=== PATIENT | male | born 1965 | race Caucasian/White ===

== ENCOUNTER 2020-12-10 13:58 | Emergency (ER) | payer BC, MEDICARE ==
[2020-12-10] MEDS ORDERED: Sodium Chloride 0.9% 1000 ML 1,000 ML IV STA (14:01)
[2020-12-10] MEDS ORDERED: Sodium Chloride 0.9% 1000 ML 1,000 ML ONE (14:06)
[2020-12-10 14:17] LABS: Absolute Neutrophil Ct (ANC) 7.47 (1.4-6.9); BASOPHIL % 0.2 % (0.0-0.4); Basophil (Absolute #) 0.02 (0-0.4); Eosinophil % 1.2 % (0.00-5.0); Eosinophil (Absolute #) 0.12 (0-0.5); Hematocrit 47.9 % (42-50); Hemoglobin 16.5 gm/dl (12.5-18.0); Lymphocyte (Absolute #) 1.69 (1.0-4.6); Lymphocytes % 16.8 % (24.0-44.0); Mean Cell Volume 89.2 fl (78-100); Mean Corpuscular Hemoglobin 30.7 pg (26-32); Mean Corpuscular Hgb Concent. 34.4 g/dl (32-36); Mean Platelet Volume 8.7 fl (7.5-11.0); Monocyte (Absolute #) 0.75 (0.0-1.3); Monocytes % 7.5 % (0.0-12.0); Neutrophil % 74.3 % (36.0-66.0); Platelet Count 254 K/mm3 (150-450); Red Blood Count 5.37 M/mm3 (4.1-5.6); Red Cell Distribution Width 12.8 % (11.5-14.0); White Blood Count 10.1 K/mm3 (4.0-10.5)
--- NOTE | 2020-12-10 14:31 | XRAY ---
Indication: Short of breath. Heat exhaustion. Comparison: April 21, 2006. Portable chest again demonstrates normal heart and lungs. Bony thorax intact with mild degenerative changes. No new/acute findings.
[2020-12-10 14:47] LABS: ALBUMIN 4.9 g/dL (3.5-5.0); ANION GAP 23.5 MEQ/L (5-15); BILIRUBIN,TOTAL 2.2 mg/dL (0.2-1.3); Creatinine 1 1.59 mg/dL (0.66-1.25); EST GLOMERULAR FILTRATION RATE 48.1 ML/MIN; MAGNESIUM 1.9 mg/dL (1.6-2.3); NT PRO BNP 81.1 pg/mL (0-900); Potassium 4.6 mmol/L (3.5-5.1); Total Protein 7.7 g/dL (6.3-8.2)
[2020-12-10] MEDS ORDERED: Zofran 4 MG/2 ML VIAL IV ONE (14:58)
[2020-12-10] MEDS ORDERED: MORPHINE SULFATE 4 MG INJ IV ONE (14:58)
--- NOTE | 2020-12-10 15:03 | ERPHSYRPT ---
- History of Present Illness Time Seen by Provider: 12/10/20 14:01 Source: patient, EMS Exam Limitations: no limitations Patient Subjective Stated Complaint: PT states "I think I am overheated." Triage Nursing Assessment: Pt presented anxious, tachypneic, cramping in legs and hyperventilating. Physician History: 55 years old male with history of coronary artery disease status post stenting, COPD, hypertension presented in the ER with chief complaint of sudden onset heat cramps and shortness of breath after he was working outside in hot humid for almost 4 hours. Patient is tachypneic and mildly tachycardic, complaining of cramping in both calves which is visible, mild nausea and some shortness of breath and feeling hot all over. Patient reports he has been trying to keep up with his hydration but not enough. No chest pain or palpitations. Patient is very anxious. He is feeling weak fatigued and tired with no energy. Allergies/Adverse Reactions: UNOBTAINABLE Allergy (Unverified 12/10/20 14:07) pt could not remember what he was allergic to Home Medications: ALPRAZolam 0.25 MG [xanAX 0.25 MG] 0.25 mg PO DAILY 12/10/20 [History] Clopidogrel Bisulfate 75 mg [PLAVIX 75 MG Tablet] 75 mg PO DAILY 12/10/20 [History] Ezetimibe 10 mg [Zetia 10 MG] 10 mg PO DAILY 12/10/20 [History] Gabapentin 100 mg [Neurontin 100 MG] 100 mg PO DAILY 12/10/20 [History] Glipizide Xl 10 mg [Glucotrol Xl 10 MG] 10 mg PO DAILY 12/10/20 [History] Meloxicam 7.5 mg PO DAILY 12/10/20 [History] Metformin HCl [Metformin ER Osmotic] 1,000 mg PO DAILY 12/10/20 [History] PANTOPRAZOLE 40 mg Tablet [Protonix 40MG Tablet] 40 mg PO DAILY 12/10/20 [History] Rosuvastatin Calcium 20 mg PO DAILY 12/10/20 [History] Zolpidem Tartrate 10 mg [Ambien 10 MG] 10 mg PO DAILY 12/10/20 [History] lisinopriL [Lisinopril] 2.5 mg PO DAILY 12/10/20 [History] Hx Tetanus, Diphtheria Vaccination/Date Given: No Hx Influenza Vaccination/Date Given: No Hx Pneumococcal Vaccination/Date Given: No Immunizations Up to Date: Yes Travel Risk - International Travel Have you traveled outside of the country in past 3 weeks: No - Coronavirus Screening Are you exhibiting any of the following symptoms?: No Close contact with a COVID-19 positive Pt in past 14-21 Days: No - Vaccine Status Have you recieved a Covid-19 vaccination: Yes Lens Polisher: Moderna - Vaccination Dates Date of 2cond Vaccination (if applicable): 08/2020 - Review of Systems Constitutional: Fatigue, Weakness Eyes: No Symptoms Ears, Nose, & Throat: No Symptoms Respiratory: Dyspnea Cardiac: No Symptoms Abdominal/Gastrointestinal: Nausea Genitourinary Symptoms: No Symptoms Musculoskeletal: Myalgias Neurological: No Symptoms Psychological: Anxiety Endocrine: No Symptoms Hematologic/Lymphatic: No Symptoms Immunological/Allergic: No Symptoms - Past Medical History Pertinent Past Medical History: Yes Cardiac History: Coronary Artery Disease, Hypertension Respiratory History: COPD Endocrine Medical History: Diabetes Type II GI Medical History: GERD - Past Surgical History Past Surgical History: Yes Other Surgical History: back. left knee. bilat shoulder. bilat hand. bilat elbow - Social History Smoking Status: Former smoker Exposure to second hand smoke: No Drug Use: marijuana Patient Lives Alone: No - Nursing Vital Signs Nursing Vital Signs: Initial Vital Signs Temperature 97.6 F 12/10/20 13:59 Pulse Rate 98 H 12/10/20 13:59 Respiratory Rate 26 H 12/10/20 13:59 Blood Pressure 125/90 12/10/20 13:59 O2 Sat by Pulse Oximetry 100 12/10/20 13:59 Pain Scale Pain Intensity 0 - Physical Exam General Appearance: mild distress, alert, anxiety Eye Exam: PERRL/EOMI, eyes nml inspection Ears, Nose, Throat Exam: normal ENT inspection, TMs normal, pharynx normal, michelle st mucous membranes Neck Exam: normal inspection, supple, full range of motion Respiratory Exam: normal breath sounds, lungs clear Cardiovascular Exam: regular rate/rhythm, normal heart sounds Gastrointestinal/Abdomen Exam: soft, normal bowel sounds, No tenderness Back Exam: normal inspection, normal range of motion Extremity Exam: normal inspection, normal range of motion, pelvis stable, other (Visible cramping in calves) Neurologic Exam: alert, oriented x 3, cooperative, timers inspector II-XII nml as tested, nml cerebellar function, sensation nml, No normal mood/affect, No motor deficits Skin Exam: normal color SpO2 Interpretation: normal SpO2: 100 O2 Delivery: Room Air - Course EKG Interpreted by Me: RATE ([id number]), Sinus Tach, NORMAL AXIS, NORMAL INTERVALS, Right Bundle Branch Block, Non-specific ST Changes Ordered Tests: Active Orders 24 hr Category Date Time Status Wood Heel Attacher STAT Care 12/10/20 14:03 Active EKG-ER Only STAT Care 12/10/20 14:01 Active IV Insertion STAT Care 12/10/20 14:01 Active CHEST 1 VIEW (PORTABLE) Stat Exams 12/10/20 14:03 Completed CBC W DIFF Stat Lab 12/10/20 14:10 Completed CK-Creatinine Phosphokinase Stat Lab 12/10/20 14:10 Completed CMP Stat Lab 12/10/20 14:10 Completed CMP Stat Lab 12/10/20 17:20 Completed MAGNESIUM Stat Lab 12/10/20 14:10 Completed NT PRO BNP Stat Lab 12/10/20 14:10 Completed TROPONIN Q3H Lab 12/10/20 14:10 Completed TROPONIN Q3H Lab 12/10/20 17:20 Completed TROPONIN Q3H Lab 12/10/20 20:15 Ordered TROPONIN Q3H Lab 12/10/20 23:15 Ordered TROPONIN Q3H Lab 12/11/20 02:15 Ordered Medication Summary Discontinued Medications Generic Name Dose Route Start Last Admin Trade Name Freq PRN Reason Stop Dose Admin Sodium Chloride 1,000 mls @ 999 mls/hr 12/10/20 14:01 12/10/20 15:56 Sodium Chloride 0.9% 1000 Ml IV 12/10/20 15:01 Infused .Q1H1M STA Infusion Sodium Chloride Confirm 12/10/20 14:06 Sodium Chloride 0.9% 1000 Ml Administered 12/10/20 14:07 Dose 1,000 mls @ ud .ROUTE .STK-MED ONE Sodium Chloride 500 mls @ 500 mls/hr 12/10/20 16:19 12/10/20 17:56 Sodium Chloride 0.9% 500 Ml IV 12/10/20 17:18 Infused .Q1H ONE Infusion Sodium Chloride Confirm 12/10/20 16:17 Sodium Chloride 0.9% 500 Ml Administered 12/10/20 16:18 Dose 500 mls @ ud IV .STK-MED ONE Morphine Sulfate 4 mg 12/10/20 14:58 12/10/20 15:05 Morphine Sulfate 4 Mg Inj IV 12/10/20 14:59 4 mg STAT ONE Administration Morphine Sulfate Confirm 12/10/20 15:04 Morphine Sulfate 4 Mg Inj Administered 12/10/20 15:05 Dose 4 mg .ROUTE .STK-MED ONE Ondansetron HCl 4 mg 12/10/20 14:58 12/10/20 15:05 Zofran 4 Mg/2 Ml Vial IV 12/10/20 14:59 4 mg STAT ONE Administration Ondansetron HCl Confirm 12/10/20 15:04 Zofran 4 Mg/2 Ml Vial Administered 12/10/20 15:05 Dose 4 mg .ROUTE .STK-MED ONE Lab/Rad Data: Laboratory Result Diagrams 12/10/20 14:10 12/10/20 17:20 Laboratory Results 12/10/20 12/10/20 12/10/20 Range/Units 17:20 17:20 14:10 WBC (4.0-10.5) K/mm3 RBC (4.1-5.6) M/mm3 Hgb (12.5-18.0) gm/dl Hct (42-50) % MCV (78-100) fl MCH (26-32) pg MCHC (32-36) g/dl RDW (11.5-14.0) % Plt Count (150-450) K/mm3 MPV (7.5-11.0) fl Gran % (36.0-66.0) % Eos # (Auto) (0-0.5) Absolute Lymphs (auto) (1.0-4.6) Absolute Monos (auto) (0.0-1.3) Lymphocytes % (24.0-44.0) % Monocytes % (0.0-12.0) % Eosinophils % (0.00-5.0) % Basophils % (0.0-0.4) % Absolute Granulocytes (1.4-6.9) Basophils # (0-0.4) Sodium 141 (137-145) mmol/L Potassium 4.3 (3.5-5.1) mmol/L Chloride 109 H (98-107) mmol/L Carbon Dioxide 21 L (22-30) mmol/L Anion Gap 15.7 H (5-15) MEQ/L BUN 22 H (9-20) mg/dL Creatinine 1.20 (0.66-1.25) mg/dL Estimated GFR > 60.0 ML/MIN Glucose 133 H (74-106) mg/dL Calcium 9.2 (8.4-10.2) mg/dL Magnesium (1.6-2.3) mg/dL Total Bilirubin 2.10 H (0.2-1.3) mg/dL AST 34 (17-59) U/L ALT 47 (0-50) U/L Alkaline Phosphatase 36 L (38-126) U/L Creatine Kinase (55-170) U/L Troponin I 0.015 < 0.012 (0.000-0.034) ng/mL NT-Pro-B Natriuret Pep (0-900) pg/mL Serum Total Protein 7.0 (6.3-8.2) g/dL Albumin 4.3 (3.5-5.0) g/dL 12/10/20 12/10/20 Range/Units 14:10 14:10 WBC 10.1 (4.0-10.5) K/mm3 RBC 5.37 (4.1-5.6) M/mm3 Hgb 16.5 (12.5-18.0) gm/dl Hct 47.9 (42-50) % MCV 89.2 (78-100) fl MCH 30.7 (26-32) pg MCHC 34.4 (32-36) g/dl RDW 12.8 (11.5-14.0) % Plt Count 254 (150-450) K/mm3 MPV 8.7 (7.5-11.0) fl Gran % 74.3 H (36.0-66.0) % Eos # (Auto) 0.12 (0-0.5) Absolute Lymphs (auto) 1.69 (1.0-4.6) Absolute Monos (auto) 0.75 (0.0-1.3) Lymphocytes % 16.8 L (24.0-44.0) % Monocytes % 7.5 (0.0-12.0) % Eosinophils % 1.2 (0.00-5.0) % Basophils % 0.2 (0.0-0.4) % Absolute Granulocytes 7.47 H (1.4-6.9) Basophils # 0.02 (0-0.4) Sodium 140 (137-145) mmol/L Potassium 4.6 (3.5-5.1) mmol/L Chloride 106 (98-107) mmol/L Carbon Dioxide 15 L* (22-30) mmol/L Anion Gap 23.5 H (5-15) MEQ/L BUN 20 (9-20) mg/dL Creatinine 1.59 H (0.66-1.25) mg/dL Estimated GFR 48.1 ML/MIN Glucose 212 H (74-106) mg/dL Calcium 10.0 (8.4-10.2) mg/dL Magnesium 1.9 (1.6-2.3) mg/dL Total Bilirubin 2.20 H (0.2-1.3) mg/dL AST 41 (17-59) U/L ALT 47 (0-50) U/L Alkaline Phosphatase 44 (38-126) U/L Creatine Kinase 89 (55-170) U/L Troponin I (0.000-0.034) ng/mL NT-Pro-B Natriuret Pep 81.1 (0-900) pg/mL Serum Total Protein 7.7 (6.3-8.2) g/dL Albumin 4.9 (3.5-5.0) g/dL - Progress Progress: improved, re-examined Progress Note: 12/10/20 18:27 55 years old is evaluated for heat cramps/exhaustion after working for a long time and hot sun. Patient was tachypneic and mildly tachycardic on presentation. Given multiple fluid boluses along with a dose of morphine, on reevaluation feeling better. Work-up showed finding consistent with dehydration, some DOUGLAS which I have repeated after 2-1/2 L fluid and it is much improved. EKG did not show any acute ST elevation and negative troponins x2. Chest x-ray negative for any acute cardiopulmonary findings. Patient is feeling back to his baseline on reevaluation. He is advised to drink plenty of fluids to keep himself well-hydrated, stay in a cool place in outpatient follow-up. Discussed signs symptoms of worsening needing return to ER which he seems understanding. Stable for discharge. Counseled pt/family regarding: lab results, diagnosis, need for follow-up, rad results - Departure Departure Disposition: Home Clinical Impression: Dehydration, DOUGLAS (acute kidney injury) Heat exhaustion Qualifiers: Encounter type: initial encounter Qualified Code(s): T67.5XXA - Heat exhaustion , unspecified, initial encounter Condition: Stable Critical Care Time: No Referrals: ROMERO INGRAM [Primary Care Provider] - (Call tomorrow for reevaluation in 1 to 2 days.) Instructions: Heat Exhaustion and Heat Stroke (DC) Additional Instructions: Drink plenty of fluids. Do not take ibuprofen/Aleve/diclofenac or any other NSAIDs. Follow-up with primary care physician for reevaluation. Stay in a cool place. Return to ER for worsening. Take Tylenol as needed for cramping.
[2020-12-10] MEDS ORDERED: MORPHINE SULFATE 4 MG INJ ONE (15:04)
[2020-12-10] MEDS ORDERED: Zofran 4 MG/2 ML VIAL ONE (15:04)
[2020-12-10] MEDS ORDERED: Sodium Chloride 0.9% 500 ML 500 ML IV ONE ×2 (16:17→16:19)
[2020-12-10 17:45] LABS: ALBUMIN 4.3 g/dL (3.5-5.0); ALKALINE PHOSPHATASE 36 U/L (38-126); ANION GAP 15.7 MEQ/L (5-15); BLOOD UREA NITROGEN 22 mg/dL (9-20); CHLORIDE 109 mmol/L (98-107); Calcium 9.2 mg/dL (8.4-10.2); Carbon Dioxide 21 mmol/L (22-30); EST GLOMERULAR FILTRATION RATE > 60.0 ML/MIN; Glucose 133 mg/dL (74-106); Potassium 4.3 mmol/L (3.5-5.1); SGOT/AST 34 U/L (17-59); SGPT/ALT 47 U/L (0-50); SODIUM 141 mmol/L (137-145)
[2020-12-10 19:02] VITALS: BP 114/62
[2020-12-10 19:03] VITALS: PULSE 66; O2SAT 97
== END 2020-12-10 19:17 | disposition home or self-care (01) ==
LOC: ED 13:58
DX: E86.0 Dehydration (principal); N17.9 Acute kidney failure, unspecified; I10 Essential (primary) hypertension; J44.9 Chronic obstructive pulmonary disease, unspecified; I25.10 Atherosclerotic heart disease of native coronary artery without angina pectoris
CPT/HCPCS: 36000; 36415; 71045; 80053; 82550; 83735; 83880; 84484; 85025; 93005; 93041; 96360; 96374; 96375; 99285; J2270; J2405

== ENCOUNTER 2020-12-12 12:52 | Emergency (ER) | payer MEDICARE, MEDICAID ==
[2020-12-12] MEDS ORDERED: Ativan 2 MG/1 ML VIAL ONE ×2 (12:56→13:00)
[2020-12-12] MEDS ORDERED: Sodium Chloride 0.9% 1000 ML 1,000 ML IV STA ×2 (12:57→14:54)
[2020-12-12] MEDS ORDERED: Ativan 2 MG/1 ML VIAL IV ONE ×2 (12:57→13:01)
[2020-12-12] MEDS ORDERED: Sodium Chloride 0.9% 1000 ML 1,000 ML ONE ×2 (13:00→15:00)
[2020-12-12] MEDS ORDERED: Hydromorphone 1 mg/ml Injection IV ONE (13:28)
[2020-12-12] MEDS ORDERED: Hydromorphone 1 mg/ml Injection ONE (13:36)
[2020-12-12 14:14] LABS: Absolute Neutrophil Ct (ANC) 7.68 (1.4-6.9); BASOPHIL % 0.2 % (0.0-0.4); Basophil (Absolute #) 0.02 (0-0.4); Eosinophil % 0.6 % (0.00-5.0); Eosinophil (Absolute #) 0.06 (0-0.5); Hematocrit 42.2 % (42-50); Hemoglobin 14.4 gm/dl (12.5-18.0); Lymphocyte (Absolute #) 2.15 (1.0-4.6); Mean Cell Volume 90.2 fl (78-100); Mean Corpuscular Hemoglobin 30.8 pg (26-32); Mean Corpuscular Hgb Concent. 34.1 g/dl (32-36); Mean Platelet Volume 8.4 fl (7.5-11.0); Monocyte (Absolute #) 0.82 (0.0-1.3); Monocytes % 7.6 % (0.0-12.0); Neutrophil % 71.6 % (36.0-66.0); Platelet Count 207 K/mm3 (150-450); Red Blood Count 4.68 M/mm3 (4.1-5.6); Red Cell Distribution Width 12.5 % (11.5-14.0); White Blood Count 10.7 K/mm3 (4.0-10.5)
--- NOTE | 2020-12-12 14:17 | XRAY ---
Indication: Cough. Comparison: December 10, 2020. Portable chest again demonstrates normal heart and lungs. No new/acute findings.
[2020-12-12 14:19] LABS: Appearance CLEAR (CLEAR); Bilirubin NEGATIVE (NEGATIVE); Blood NEGATIVE Ery/ul (0-5); Glucose 150 mg/dL (NEGATIVE); Ketones TRACE (NEGATIVE); Leukocyte Esterase NEGATIVE (NEGATIVE); Mucus SLIGHT /HPF (NEGATIVE); Nitrite NEGATIVE (NEGATIVE); Protein,Urine Dip NEGATIVE (Negative); Specific Gravity 1.005 (1.005-1.025); Urobilinogen NEGATIVE mg/dL (0-1)
[2020-12-12 14:21] LABS: INR 1.03 (0.8-3.0); PROTIME 12.2 SECONDS (9.4-12.5)
[2020-12-12 14:24] LABS: ALBUMIN 4.5 g/dL (3.5-5.0); ALKALINE PHOSPHATASE 38 U/L (38-126); AMYLASE 89 U/L (30-110); ANION GAP 15.8 MEQ/L (5-15); BLOOD UREA NITROGEN 16 mg/dL (9-20); CHLORIDE 110 mmol/L (98-107); Calcium 9.8 mg/dL (8.4-10.2); Carbon Dioxide 21 mmol/L (22-30); Creatinine 1 0.91 mg/dL (0.66-1.25); EST GLOMERULAR FILTRATION RATE > 60.0 ML/MIN; Glucose 118 mg/dL (74-106); LIPASE 72 U/L (23-300); Potassium 4.1 mmol/L (3.5-5.1); SGOT/AST 46 U/L (17-59); SGPT/ALT 40 U/L (0-50); SODIUM 143 mmol/L (137-145); Total Protein 7.1 g/dL (6.3-8.2)
[2020-12-12 14:38] LABS: Amphetamine,Urine NEGATIVE (NEGATIVE); Barbiturate,Urine NEGATIVE (NEGATIVE); Benzodiazepine,Urine NEGATIVE (NEGATIVE); Cocaine,Urine NEGATIVE (NEGATIVE); Methadone,Urine NEGATIVE (NEGATIVE); Opiate,Urine NEGATIVE (NEGATIVE); PCP,Urine NEGATIVE (NEGATIVE); THC,Urine POSITIVE (NEGATIVE)
--- NOTE | 2020-12-12 15:35 | ERPHSYRPT ---
- History of Present Illness Time Seen by Provider: 12/12/20 13:05 Source: patient, family Exam Limitations: no limitations Patient Subjective Stated Complaint: PT states "I was working in the yard again and it hit me all at once. I hurt." Triage Nursing Assessment: Pt presented extremely anxious, unable to sit still. pt tachypniec, grunting and groaing. Pt hyperventillating with partial pedal spasms. Physician History: Patient is a 55-year-old male who was working out in the heat and has been for some time who began to get muscle cramping hyperventilation carpal spasm paresthesias etc. he was seen for the same 2 or 3 days ago in the ER was treated with fluids and eventually the hyperventilation and the muscle spasm resolved. He has been working on an awning that he is trying to install. Timing/Duration: today Severity: severe Modifying Factors: Improves With: other (Heat) Associated Symptoms: shortness of breath, headaches, weakness Allergies/Adverse Reactions: UNOBTAINABLE Allergy (Verified 12/12/20 13:05) pt could not remember what he was allergic to Home Medications: ALPRAZolam 0.25 MG [xanAX 0.25 MG] 0.25 mg PO DAILY 12/10/20 [History] Clopidogrel Bisulfate 75 mg [PLAVIX 75 MG Tablet] 75 mg PO DAILY 12/10/20 [History] Ezetimibe 10 mg [Zetia 10 MG] 10 mg PO DAILY 12/10/20 [History] Gabapentin 100 mg [Neurontin 100 MG] 100 mg PO DAILY 12/10/20 [History] Glipizide Xl 10 mg [Glucotrol Xl 10 MG] 10 mg PO DAILY 12/10/20 [History] Meloxicam 7.5 mg PO DAILY 12/10/20 [History] Metformin HCl [Metformin ER Osmotic] 1,000 mg PO DAILY 12/10/20 [History] PANTOPRAZOLE 40 mg Tablet [Protonix 40MG Tablet] 40 mg PO DAILY 12/10/20 [History] Rosuvastatin Calcium 20 mg PO DAILY 12/10/20 [History] Zolpidem Tartrate 10 mg [Ambien 10 MG] 10 mg PO DAILY 12/10/20 [History] lisinopriL [Lisinopril] 2.5 mg PO DAILY 12/10/20 [History] Hx Tetanus, Diphtheria Vaccination/Date Given: No Hx Influenza Vaccination/Date Given: No Hx Pneumococcal Vaccination/Date Given: No Immunizations Up to Date: Yes Travel Risk - International Travel Have you traveled outside of the country in past 3 weeks: No - Coronavirus Screening Are you exhibiting any of the following symptoms?: No Close contact with a COVID-19 positive Pt in past 14-21 Days: No - Vaccine Status Have you recieved a Covid-19 vaccination: Yes Receiving And Processing Supervisor: Modern[employer] - Vaccination Dates Date of 2cond Vaccination (if applicable): 08/2020 - Review of Systems Constitutional: No Fever, No Chills Eyes: No Symptoms Ears, Nose, & Throat: No Symptoms Respiratory: Dyspnea, No Cough Cardiac: No Chest Pain, No Edema, No Syncope Abdominal/Gastrointestinal: No Abdominal Pain, No Nausea, No Vomiting, No Diarrhea Genitourinary Symptoms: No Dysuria Musculoskeletal: Other (Carpal spasm), No Back Pain, No Neck Pain Skin: No Rash Neurological: Parasthesia, No Dizziness, No Focal Weakness, No Sensory Changes Psychological: Anxiety Endocrine: No Symptoms All Other Systems: Reviewed and Negative - Past Medical History Pertinent Past Medical History: Yes Cardiac History: Coronary Artery Disease, Hypertension Respiratory History: COPD Endocrine Medical History: Diabetes Type II GI Medical History: GERD - Past Surgical History Past Surgical History: Yes Other Surgical History: back. left knee. bilat shoulder. bilat hand. bilat elbow - Social History Smoking Status: Former smoker Exposure to second hand smoke: No Drug Use: marijuana Patient Lives Alone: No - Nursing Vital Signs Nursing Vital Signs: Initial Vital Signs Temperature 98.2 F 12/12/20 12:59 Pulse Rate 100 H 12/12/20 12:59 Respiratory Rate 24 12/12/20 12:59 Blood Pressure 122/116 12/12/20 12:59 O2 Sat by Pulse Oximetry 100 12/12/20 12:59 Pain Scale Pain Intensity 0 - Physical Exam General Appearance: moderate distress, alert, anxiety Eye Exam: PERRL/EOMI, eyes nml inspection Ears, Nose, Throat Exam: normal ENT inspection, TMs normal, pharynx normal, moist mucous membranes Neck Exam: normal inspection, non-tender, supple, full range of motion Respiratory Exam: other (Hyperventilation) Cardiovascular Exam: regular rate/rhythm, normal heart sounds, normal peripheral pulses Gastrointestinal/Abdomen Exam: soft, normal bowel sounds, No tenderness, No mass Back Exam: normal inspection, normal range of motion, No CVA tenderness, No vertebral tenderness Extremity Exam: normal range of motion, parasthesia, other (Carpal spasm) Neurologic Exam: alert, oriented x 3, sample examiner II-XII nml as tested, agitation Skin Exam: diaphoresis SpO2 Interpretation: normal SpO2: 119 O2 Delivery: Room Air - Course Nursing assessment & vital signs reviewed: Yes EKG Interpreted by Me: RATE ([id number]), Sinus Rhythm, NORMAL AXIS, NORMAL INTERVALS, Right Bundle Branch Block, Non-specific ST Changes - Radiology Exams Chest X-ray Interpretation: Negative Ordered Tests: Active Orders 24 hr Category Date Time Status EKG-ER Only STAT Care 12/12/20 13:28 Active IV Insertion STAT Care 12/12/20 13:28 Active CHEST 1 VIEW (PORTABLE) Stat Exams 12/12/20 13:30 Completed AMYLASE Stat Lab 12/12/20 14:05 Completed CBC W DIFF Stat Lab 12/12/20 14:05 Completed CK (IN-HOUSE) [CK-Creatinine Phosphokinase] Stat Lab 12/12/20 14:05 Completed CMP Stat Lab 12/12/20 14:05 Completed LIPASE Stat Lab 12/12/20 14:05 Completed Lactic Acid Stat Lab 12/12/20 14:08 Completed PROTIME WITH INR Stat Lab 12/12/20 14:05 Completed TROPONIN Q3H Lab 12/12/20 14:05 Completed TROPONIN Q3H Lab 12/12/20 16:30 Ordered TROPONIN Q3H Lab 12/12/20 19:30 Ordered TROPONIN Q3H Lab 12/12/20 22:30 Ordered TROPONIN Q3H Lab 12/13/20 01:30 Ordered UA W/RFX UR CULTURE Stat Lab 12/12/20 13:42 Completed Urine Triage Profile Stat Lab 12/12/20 13:42 Completed Medication Summary Generic Name Dose Route Start Last Admin Trade Name Freq PRN Reason Stop Dose Admin Sodium Chloride 1,000 mls @ 999 mls/hr 12/12/20 14:54 12/12/20 15:02 Sodium Chloride 0.9% 1000 Ml IV 12/12/20 15:54 999 mls/hr .Q1H1M STA Administration Discontinued Medications Generic Name Dose Route Start Last Admin Trade Name Mago PRN Reason Stop Dose Admin Hydromorphone HCl 1 mg 12/12/20 13:28 12/12/20 13:40 Hydromorphone 1 Mg/Ml Injection IV 12/12/20 13:29 1 mg STAT ONE Administration Hydromorphone HCl Confirm 12/12/20 13:36 Hydromorphone 1 Mg/Ml Injection Administered 12/12/20 13:37 Dose 1 mg .ROUTE .STK-MED ONE Sodium Chloride 1,000 mls @ 999 mls/hr 12/12/20 12:57 12/12/20 14:43 Sodium Chloride 0.9% 1000 Ml IV 12/12/20 13:57 Infused .Q1H1M STA Infusion Sodium Chloride Confirm 12/12/20 13:00 Sodium Chloride 0.9% 1000 Ml Administered 12/12/20 13:01 Dose 1,000 mls @ ud .ROUTE .STK-MED ONE Sodium Chloride Confirm 12/12/20 15:00 Sodium Chloride 0.9% 1000 Ml Administered 12/12/20 15:01 Dose 1,000 mls @ ud .ROUTE .STK-MED ONE Lorazepam 1 mg 12/12/20 12:57 12/12/20 13:12 Ativan 2 Mg/1 Ml Vial IV 12/12/20 12:58 1 mg STAT ONE Administration Lorazepam Confirm 12/12/20 12:56 Ativan 2 Mg/1 Ml Vial Administered 12/12/20 12:57 Dose 2 mg .ROUTE .STK-MED ONE Lorazepam 1 mg 12/12/20 13:01 12/12/20 13:13 Ativan 2 Mg/1 Ml Vial IV 12/12/20 13:02 1 mg STAT ONE Administration Lorazepam Confirm 12/12/20 13:00 Ativan 2 Mg/1 Ml Vial Administered 12/12/20 13:01 Dose 2 mg .ROUTE .STK-MED ONE Lab/Rad Data: Laboratory Result Diagrams 12/12/20 14:05 12/12/20 14:05 Laboratory Results 12/12/20 12/12/20 12/12/20 Range/Units 14:08 14:05 14:05 WBC (4.0-10.5) K/mm3 RBC (4.1-5.6) M/mm3 Hgb (12.5-18.0) gm/dl Hct (42-50) % MCV (78-100) fl MCH (26-32) pg MCHC (32-36) g/dl RDW (11.5-14.0) % Plt Count (150-450) K/mm3 MPV (7.5-11.0) fl Gran % (36.0-66.0) % Eos # (Auto) (0-0.5) Absolute Lymphs (auto) (1.0-4.6) Absolute Monos (auto) (0.0-1.3) Lymphocytes % (24.0-44.0) % Monocytes % (0.0-12.0) % Eosinophils % (0.00-5.0) % Basophils % (0.0-0.4) % Absolute Granulocytes (1.4-6.9) Basophils # (0-0.4) PT (9.4-12.5) SECONDS INR (0.8-3.0) Sodium (137-145) mmol/L Potassium (3.5-5.1) mmol/L Chloride (98-107) mmol/L Carbon Dioxide (22-30) mmol/L Anion Gap (5-15) MEQ/L BUN (9-20) mg/dL Creatinine (0.66-1.25) mg/dL Estimated GFR ML/MIN Glucose (74-106) mg/dL Lactic Acid 2.9 H (0.4-2.0) Calcium (8.4-10.2) mg/dL Total Bilirubin (0.2-1.3) mg/dL AST (17-59) U/L ALT (0-50) U/L Alkaline Phosphatase (38-126) U/L Creatine Kinase 388 H (55-170) U/L Troponin I 0.014 (0.000-0.034) ng/mL Serum Total Protein (6.3-8.2) g/dL Albumin (3.5-5.0) g/dL Amylase (30-110) U/L Lipase (23-300) U/L Urine Color (YELLOW) Urine Appearance (CLEAR) Urine pH (5-6) Ur Specific [place] (1.005-1.025) Urine Protein (Negative) Urine Ketones (NEGATIVE) Urine Blood (0-5) Mikel/ul Urine Nitrite (NEGATIVE) Urine Bilirubin (NEGATIVE) Urine Urobilinogen (0-1) mg/dL Ur Leukocyte Esterase (NEGATIVE) Urine WBC (Auto) (0-5) /HPF Urine RBC (Auto) (0-2) /HPF U Epithel Cells (Auto) (FEW) /HPF Urine Bacteria (Auto) (NEGATIVE) /HPF Urine Mucus (Auto) (NEGATIVE) /HPF Urine Culture Reflexed (NO) Urine Glucose (NEGATIVE) mg/dL Urine Opiates Level (NEGATIVE) Ur Methadone (NEGATIVE) Urine Barbiturates (NEGATIVE) Ur Phencyclidine (PCP) (NEGATIVE) Urine Amphetamine (NEGATIVE) U Benzodiazepine Level (NEGATIVE) Urine Cocaine (NEGATIVE) Urine Marijuana (THC) (NEGATIVE) 12/12/20 12/12/20 12/12/20 Range/Units 14:05 14:05 14:05 WBC 10.7 H (4.0-10.5) K/mm3 RBC 4.68 (4.1-5.6) M/mm3 Hgb 14.4 (12.5-18.0) gm/dl Hct 42.2 (42-50) % MCV 90.2 (78-100) fl MCH 30.8 (26-32) pg MCHC 34.1 (32-36) g/dl RDW 12.5 (11.5-14.0) % Plt Count 207 (150-450) K/mm3 MPV 8.4 (7.5-11.0) fl Gran % 71.6 H (36.0-66.0) % Eos # (Auto) 0.06 (0-0.5) Absolute Lymphs (auto) 2.15 (1.0-4.6) Absolute Monos (auto) 0.82 (0.0-1.3) Lymphocytes % 20.0 L (24.0-44.0) % Monocytes % 7.6 (0.0-12.0) % Eosinophils % 0.6 (0.00-5.0) % Basophils % 0.2 (0.0-0.4) % Absolute Granulocytes 7.68 H (1.4-6.9) Basophils # 0.02 (0-0.4) PT 12.2 (9.4-12.5) SECONDS INR 1.03 (0.8-3.0) Sodium 143 (137-145) mmol/L Potassium 4.1 (3.5-5.1) mmol/L Chloride 110 H (98-107) mmol/L Carbon Dioxide 21 L (22-30) mmol/L Anion Gap 15.8 H (5-15) MEQ/L BUN 16 (9-20) mg/dL Creatinine 0.91 (0.66-1.25) mg/dL Estimated GFR > 60.0 ML/MIN Glucose 118 H (74-106) mg/dL Lactic Acid (0.4-2.0) Calcium 9.8 (8.4-10.2) mg/dL Total Bilirubin 1.70 H (0.2-1.3) mg/dL AST 46 (17-59) U/L ALT 40 (0-50) U/L Alkaline Phosphatase 38 (38-126) U/L Creatine Kinase (55-170) U/L Troponin I (0.000-0.034) ng/mL Serum Total Protein 7.1 (6.3-8.2) g/dL Albumin 4.5 (3.5-5.0) g/dL Amylase 89 (30-110) U/L Lipase 72 (23-300) U/L Urine Color (YELLOW) Urine Appearance (CLEAR) Urine pH (5-6) Ur Specific [place] (1.005-1.025) Urine Protein (Negative) Urine Ketones (NEGATIVE) Urine Blood (0-5) Mikel/ul Urine Nitrite (NEGATIVE) Urine Bilirubin (NEGATIVE) Urine Urobilinogen (0-1) mg/dL Ur Leukocyte Esterase (NEGATIVE) Urine WBC (Auto) (0-5) /HPF Urine RBC (Auto) (0-2) /HPF U Epithel Cells (Auto) (FEW) /HPF Urine Bacteria (Auto) (NEGATIVE) /HPF Urine Mucus (Auto) (NEGATIVE) /HPF Urine Culture Reflexed (NO) Urine Glucose (NEGATIVE) mg/dL Urine Opiates Level (NEGATIVE) Ur Methadone (NEGATIVE) Urine Barbiturates (NEGATIVE) Ur Phencyclidine (PCP) (NEGATIVE) Urine Amphetamine (NEGATIVE) U Benzodiazepine Level (NEGATIVE) Urine Cocaine (NEGATIVE) Urine Marijuana (THC) (NEGATIVE) 12/12/20 12/12/20 Range/Units 13:42 13:42 WBC (4.0-10.5) K/mm3 RBC (4.1-5.6) M/mm3 Hgb (12.5-18.0) gm/dl Hct (42-50) % MCV (78-100) fl MCH (26-32) pg MCHC (32-36) g/dl RDW (11.5-14.0) % Plt Count (150-450) K/mm3 MPV (7.5-11.0) fl Gran % (36.0-66.0) % Eos # (Auto) (0-0.5) Absolute Lymphs (auto) (1.0-4.6) Absolute Monos (auto) (0.0-1.3) Lymphocytes % (24.0-44.0) % Monocytes % (0.0-12.0) % Eosinophils % (0.00-5.0) % Basophils % (0.0-0.4) % Absolute Granulocytes (1.4-6.9) Basophils # (0-0.4) PT (9.4-12.5) SECONDS INR (0.8-3.0) Sodium (137-145) mmol/L Potassium (3.5-5.1) mmol/L Chloride (98-107) mmol/L Carbon Dioxide (22-30) mmol/L Anion Gap (5-15) MEQ/L BUN (9-20) mg/dL Creatinine (0.66-1.25) mg/dL Estimated GFR ML/MIN Glucose (74-106) mg/dL Lactic Acid (0.4-2.0) Calcium (8.4-10.2) mg/dL Total Bilirubin (0.2-1.3) mg/dL AST (17-59) U/L ALT (0-50) U/L Alkaline Phosphatase (38-126) U/L Creatine Kinase (55-170) U/L Troponin I (0.000-0.034) ng/mL Serum Total Protein (6.3-8.2) g/dL Albumin (3.5-5.0) g/dL Amylase (30-110) U/L Lipase (23-300) U/L Urine Color YELLOW (YELLOW) Urine Appearance CLEAR (CLEAR) Urine pH 7.0 (5-6) Ur Specific [place] 1.005 (1.005-1.025) Urine Protein NEGATIVE (Negative) Urine Ketones TRACE (NEGATIVE) Urine Blood NEGATIVE (0-5) Mikel/ul Urine Nitrite NEGATIVE (NEGATIVE) Urine Bilirubin NEGATIVE (NEGATIVE) Urine Urobilinogen NEGATIVE (0-1) mg/dL Ur Leukocyte Esterase NEGATIVE (NEGATIVE) Urine WBC (Auto) NONE (0-5) /HPF Urine RBC (Auto) NONE (0-2) /HPF U Epithel Cells (Auto) NONE (FEW) /HPF Urine Bacteria (Auto) NONE (NEGATIVE) /HPF Urine Mucus (Auto) SLIGHT (NEGATIVE) /HPF Urine Culture Reflexed NO (NO) Urine Glucose 150 (NEGATIVE) mg/dL Urine Opiates Level NEGATIVE (NEGATIVE) Ur Methadone NEGATIVE (NEGATIVE) Urine Barbiturates NEGATIVE (NEGATIVE) Ur Phencyclidine (PCP) NEGATIVE (NEGATIVE) Urine Amphetamine NEGATIVE (NEGATIVE) U Benzodiazepine Level NEGATIVE (NEGATIVE) Urine Cocaine NEGATIVE (NEGATIVE) Urine Marijuana (THC) POSITIVE (NEGATIVE) - Progress Progress: improved - Departure Departure Disposition: Home Clinical Impression: Heat exhaustion Condition: Stable Critical Care Time: No Referrals: ROMERO INGRAM [Primary Care Provider] - Instructions: Heat Exhaustion and Heat Stroke (DC)
[2020-12-12 16:05] VITALS: BP 143/80; PULSE 54; O2SAT 98
== END 2020-12-12 16:12 | disposition home or self-care (01) ==
LOC: ED 12:52
DX: T67.5XXA Heat exhaustion, unspecified, initial encounter (principal); X58.XXXA Exposure to other specified factors, initial encounter; Y93.H9 Activity, other involving exterior property and land maintenance, building and construction; Y92.096 Garden or yard of other non-institutional residence as the place of occurrence of the external cause; Y99.8 Other external cause status; I10 Essential (primary) hypertension; E11.9 Type 2 diabetes mellitus without complications; Z79.899 Other long term (current) drug therapy
CPT/HCPCS: 36415; 71045; 80053; 80307; 81001; 82150; 82550; 83605; 83690; 84484; 85025; 85610; 93005; 96360; 96374; 96375; 96376; 99284; J1170; J2060